=== PATIENT | male | born 1940 | race Caucasian/White ===

== ENCOUNTER → 2016-08-29 | Outpatient (CLI) | payer MEDICARE, OTHER ==
[~2016-08-29] MED LIST: ADULT LOW DOSE81 MG PO; ALBUTEROL2.5 MG/0.5 INH; BUPROPION HCL150 M1 PO; BUSPAR 10MG10 MG PO; CITALOPRAM HBR40 MG PO; DIGOX125 MCG PO; DOXAZOSIN MESYLA8 MG PO; FUROSEMIDE40 MG PO; ISORDIL TAB 2020 MG PO; ISORDIL TAB 3030 MG PO; ISOSORBIDE MONO30 MG PO; K-TAB ER20 MEQ PO; KLONOPIN TAB 00.5 MG PO; KLONOPIN0.5 MG PO; LANOXIN TAB 00.25 MG PO; LIPITOR TAB 2020 MG PO; LOPRESSOR100 MG PO; MECLIZINE HCL25 MG PO; MEDROL4 MG PO; MIRTAZAPINE15 MG PO; NEURONTIN 300300 MG PO; PROTONIX40 MG PO; REMERON15 M1 PO; SPIRIVA RESPIMAT4 GM INH; XARELTO10 MG PO
== END ==
LOC: EMI 11:00
DX: C34.90 Malignant neoplasm of unspecified part of unspecified bronchus or lung (principal); R90.89 Other abnormal findings on diagnostic imaging of central nervous system
CPT/HCPCS: 70553; A9576; J7050

== ENCOUNTER 2016-09-02 17:05 | Inpatient (IN) | payer MEDICARE ==
[~2016-09-02] VITALS: Ht 188 cm; Wt 108.7 kg
[~2016-09-02 17:05] MED LIST changes: -KLONOPIN0.5 MG PO; -LANOXIN TAB 00.25 MG PO; -MECLIZINE HCL25 MG PO; -REMERON15 M1 PO; -SPIRIVA RESPIMAT4 GM INH
[2016-09-02 17:45] LABS: RED BLOOD COUNT 4.2 M/UL (4.20-5.50); WHITE BLOOD COUNT 8.7 K/UL (4.5-11.0)
[2016-09-03] MEDS ORDERED: LANOXIN TAB 00.25 MG PO (04:27)
[2016-09-03] MEDS ORDERED: REMERON15 M1 PO (04:28)
[2016-09-03] MEDS ORDERED: NEURONTIN 300300 MG PO (04:28)
[2016-09-03] MEDS ORDERED: KLONOPIN0.5 MG PO (10:52)
[2016-09-03] MEDS ORDERED: MECLIZINE HCL25 MG PO (10:58)
[2016-09-03] MEDS ORDERED: SPIRIVA RESPIMAT4 GM INH (11:01)
== END 2016-09-05 18:15 | disposition home or self-care (01) | DRG 189 ==
LOC: ER1 17:05 → PROG CARE 18:45 → M/S 18:45 → ZEROF 18:45 → PROG CARE 09-03 01:23 → M/S 09-04 19:48
PROVIDERS: Emergency Medicine; ADMIT Hospitalist
DX: J96.01 Acute respiratory failure with hypoxia (principal); G93.41 Metabolic encephalopathy; J44.1 Chronic obstructive pulmonary disease with (acute) exacerbation; I13.0 Hypertensive heart and chronic kidney disease with heart failure and stage 1 through stage 4 chronic kidney disease, or unspecified chronic kidney disease; C34.90 Malignant neoplasm of unspecified part of unspecified bronchus or lung; I50.40 Unspecified combined systolic (congestive) and diastolic (congestive) heart failure; J96.02 Acute respiratory failure with hypercapnia; N18.3 Chronic kidney disease, stage 3 (moderate); I48.2 Chronic atrial fibrillation; Z99.81 Dependence on supplemental oxygen; I25.10 Atherosclerotic heart disease of native coronary artery without angina pectoris; Z87.891 Personal history of nicotine dependence; R41.0 Disorientation, unspecified; Z95.1 Presence of aortocoronary bypass graft; Z95.5 Presence of coronary angioplasty implant and graft; I25.2 Old myocardial infarction; I36.1 Nonrheumatic tricuspid (valve) insufficiency; I34.0 Nonrheumatic mitral (valve) insufficiency; I27.2 Other secondary pulmonary hypertension; Z79.899 Other long term (current) drug therapy; Z79.01 Long term (current) use of anticoagulants; Z80.9 Family history of malignant neoplasm, unspecified; E66.9 Obesity, unspecified; Z68.30 Body mass index [BMI] 30.0-30.9, adult; Z98.890 Other specified postprocedural states
CPT/HCPCS: 36415; 36600; 70450; 71010; 80053; 82550; 82553; 82803; 83874; 83880; 84484; 85025; 87040; 93005; 94640; 94660; 94664; 96374; 99285; J1940; J2270; J2310; J2920; J2930; J7509; Q0163

== ENCOUNTER 2016-09-06 07:44 | Emergency (ER) | payer MEDICARE, OTHER ==
[~2016-09-06 07:44] MED LIST changes: +KLONOPIN0.5 MG PO; +LANOXIN TAB 00.25 MG PO; +MECLIZINE HCL25 MG PO; +REMERON15 M1 PO; +SPIRIVA RESPIMAT4 GM INH
[2016-09-06 09:08] LABS: HEMOGLOBIN 12.7 gm/dl (14.0-17.5); RED BLOOD COUNT 4.16 M/UL (4.20-5.50); WHITE BLOOD COUNT 8.2 K/UL (4.5-11.0)
== END 2016-09-06 13:35 | disposition home or self-care (01) ==
LOC: ER1 07:44
PROVIDERS: Emergency Medicine
DX: J44.9 Chronic obstructive pulmonary disease, unspecified (principal); R50.9 Fever, unspecified; I48.91 Unspecified atrial fibrillation; Z87.891 Personal history of nicotine dependence; Z79.899 Other long term (current) drug therapy
CPT/HCPCS: 36415; 71010; 80053; 82550; 82553; 82803; 83605; 83874; 84484; 85025; 87040; 93005; 94664; 96365; 96375; 99291; J0696; J2930; J7050

== ENCOUNTER → 2016-09-26 | Outpatient (CLI) | payer MEDICARE, OTHER | LOC: OPSV 11:00 | DX: Z45.2 Encounter for adjustment and management of vascular access device (principal); C34.01 Malignant neoplasm of right main bronchus; C77.1 Secondary and unspecified malignant neoplasm of intrathoracic lymph nodes; Z87.891 Personal history of nicotine dependence | CPT/HCPCS: 71010 ==

== ENCOUNTER → 2016-09-27 | Outpatient (CLI) | payer MEDICARE, OTHER | LOC: OPSV 14:57 | DX: C34.01 Malignant neoplasm of right main bronchus (principal) | CPT/HCPCS: G0463 ==

== ENCOUNTER → 2016-10-02 | Outpatient (CLI) | payer MEDICARE, OTHER | LOC: OPSV 11:30 | DX: Z45.2 Encounter for adjustment and management of vascular access device (principal); C34.01 Malignant neoplasm of right main bronchus; C77.1 Secondary and unspecified malignant neoplasm of intrathoracic lymph nodes; Z87.891 Personal history of nicotine dependence | CPT/HCPCS: 71010 ==

== ENCOUNTER → 2016-11-01 | Outpatient (CLI) | payer MEDICARE, OTHER | LOC: RT 11:29 | DX: R09.02 Hypoxemia (principal) | CPT/HCPCS: 36600; 82803 ==

== ENCOUNTER → 2016-12-04 | Outpatient (CLI) | payer MEDICARE, OTHER | LOC: HEART 5 08:15 | DX: I25.10 Atherosclerotic heart disease of native coronary artery without angina pectoris (principal); I48.1 Persistent atrial fibrillation; R55 Syncope and collapse; R06.00 Dyspnea, unspecified; R42 Dizziness and giddiness; J44.9 Chronic obstructive pulmonary disease, unspecified; R06.02 Shortness of breath; R94.39 Abnormal result of other cardiovascular function study; I51.9 Heart disease, unspecified; I08.1 Rheumatic disorders of both mitral and tricuspid valves; I27.2 Other secondary pulmonary hypertension | CPT/HCPCS: 78452; 93306; A9502; J2785 ==